=== PATIENT | female | born 1960 | race Caucasian/White ===

== ENCOUNTER 2017-01-22 03:45 | Emergency (ER) ==
[2017-01-22 04:09] VITALS: BP 156/83
[2017-01-22] MEDS ORDERED: TORADOL IM ONE (04:16)
--- NOTE | 2017-01-22 04:20 | PROVIDER DOCUMENTATION ---
HPI-Musculoskeletal Pain/Inj - GENERAL Chief Complaint: Extremity Pain Stated Complaint: RT ARM PAIN Time Seen by Provider: 01/22/17 03:56 Source: patient, old records - HX OF PRESENT ILLNESS-MUSKULOSKELTAL Nature of Presenting Problem: c/o rt forearm and rt wrisst pain not relieved by Tylenol. Pt has been in ER 26 times the past two years with ssimilar complaints involving all extremeties. No serious problems have been idenified and she will not follow up with any physicians. Quality of Pain: reports: burning Severity in ED: mild Onset/Duration: 1 hour ago Timing: still present Modifying Factors: improves with: nothing Any recent injury?: No Similar Symptoms Previously?: Yes Recently seen or treated by another doctor?: Yes (multiple ER visits this year) - UPPER EXTREMITY PAIN/INJURY Extremities Pain Location: forearm: right, wrist: right Context / Method of Injury: reports: unknown Associated Symptoms: reports: other (Pt has good circulation in involved extremity, no paresthesia) Review of Systems - Adult - REVIEW OF SYSTEMS - ADULT Constitutional: reports: no symptoms reported Eyes: reports: no symptoms reported Ears, Nose, Mouth & Throat: reports: no symptoms reported Cardiovascular: reports: no symptoms reported Respiratory: reports: no symptoms reported Gastrointestinal: reports: no symptoms reported Genitourinary: reports: no symptoms reported Musculoskeletal: reports: no symptoms reported Integumentary: reports: no symptoms reported Neurological: reports: no symptoms reported Psychiatric: reports: no symptoms reported Endocrine: reports: no symptoms reported Hematologic/Lymphatic: reports: no symptoms reported Allergic/Immunologic: reports: no symptoms reported All Other Systems: Reviewed and Negative Past History - Adult - PAST MEDICAL HISTORY-ADULT Review of Records: reports: Old Records Reviewed, Nursing Assessment Review Major Childhood Illnesses: reports: denies history Cardiovascular: reports: HTN Respiratory: reports: asthma Gastrointestinal: reports: cancer Obstetrical/Gynecological: reports: denies history Genitourinary: reports: denies history Musculoskeletal: reports: arthritis, chronic pain (back), intervertebral disc disease, orthopedic injury Neurological: reports: denies history Psychiatric: reports: anxiety Endocrine/Immune: reports: denies history Other Conditions: reports: denies history - PRIOR SURGERIES/PROCEDURES Surgical/Procedure History: reports: hysterectomy, hernia repair, joint replacement - IMMUNIZATION STATUS Childhood Immunizations: See Nurse Assessment Flu Vaccine: See Nurse Assessment - FAMILY HISTORY Family History: reviewed, not pertinent Physical Exam-Injury Related - Physical Exam-Injury Related Initial Vital Signs Reviewed: Yes General Appearance: appears well, alert, no apparent distress Eyes: PERRL/EOMI Head, Ears, Nose, Mouth & Throat: dental decay Neck: non-tender, full range of motion Respiratory: chest non-tender Cardiovascular: normal peripheral pulses Peripheral Pulses: radial (R): 3+, radial (L): 3+ Abdominal Exam: normal bowel sounds Male Genitalia: deferred Rectal Exam: deferred Back Exam: normal inspection, no CVA tenderness Extremity: normal range of motion Integumentary: normal color, warm/dry Psych/Mental Status: oriented x 3, disheveled - Gl[place]ow Coma Score [place] Total: 15 Progress - PLAN OF CARE/RESULTS Progress/Plan/Lab Results: Orders Category Date Time Status Ketorolac [Toradol] Med 01/22/17 04:16 Discontinued 30 mg IM NOW ONE Vital Signs Temp Pulse Resp BP Pulse Ox 01/22/17 04:08 82 14 156/83 99 01/22/17 04:03 97.5 F L 86 18 184/89 99 Sulfa (Sulfonamide Antibiotics) Allergy (Intermediate, Verified 01/22/17 04:21) SWELLING levofloxacin [From Levaquin] Allergy (Unknown, Verified 01/22/17 04:21) Unknown Penicillins Adverse Reaction (Severe, Verified 01/22/17 04:21) SYNCOPE ferrous sulfate Adverse Reaction (Intermediate, Verified 01/22/17 04:21) DIARRHEA ketorolac tromethamine * [From Toradol] Adverse Reaction (Mild, Verified 04:21) Unknown PT UNSURE WHAT IT DOES. prochlorperazine edisylate * [From Compazine] Adverse Reaction (Mild, Verified 01/22/17 04:21) "IT MAKES ME NERVOUS" prochlorperazine maleate * [From Compazine] Adverse Reaction (Mild, Verified 03/07 04:21) " IT MAKES ME NERVOUS" promethazine HCl * [From Phenergan] Adverse Reaction (Mild, Verified 01/22/17 04 :21) "IT MAKES ME NERVOUS" Estradiol 2 mg PO QAM 03/30/14 Pantoprazole [Protonix] 40 mg PO DAILY 09/01/15 Dicyclomine HCl 10 mg PO Q6H PRN 09/10/15 Diphenoxylate/Atropine [Lomotil] 1 each PO TID PRN 09/10/15 Cephalexin [Keflex] 500 mg PO Q6HR #28 capsule 01/08/17 Cyclobenzaprine [Flexeril] 10 mg PO BID PRN 01/08/17 Fluticasone/Salmet 100/50 INH [Advair 100/50 Diskus] 1 puff INH RTBID 01/08/17 Hyoscyamine Sulfate [Symax Duotab] 0.375 mg PO BID PRN 01/08/17 Lisinopril 20 mg PO DAILY 01/08/17 Lorazepam [Ativan] 0.5 mg PO QHS 01/08/17 Nystatin Cream [Mycostatin Cream] 15 gm .SEE ORDER TID #1 tube 01/08/17 Ondansetron [Zofran] 4 mg PO TID PRN 01/08/17 Pregabalin [Lyrica] 50 mg PO TID 01/08/17 Cyclobenzaprine [Flexeril] 10 mg PO TID #20 tablet 01/09/17 Methylprednisolone [Medrol Dosepak] 4 mg PO DIRECTED #1 package 01/09/17 Departure - Departure Time of Disposition Order: 04:32 DIAGNOSIS: Arm pain, right Disposition: HOME 01 Certified Medical Emergency: Emergent Condition: Good
--- NOTE | 2017-01-24 10:32 | EKG Report ---
Test Performed on : 01/22/2017 03:50:04 AM Test Reason : ED> not ordered in [place] Blood Pressure : / mmHG Vent. Rate : 082 BPM Atrial Rate : 082 BPM P-R Int : 174 ms QRS Dur : 078 ms QT Int : 390 ms P-R-T Axes : 034 028 023 degrees QTc Int : 455 ms Normal sinus rhythm. Nonspecific ST abnormality Abnormal ECG When compared with ECG of 01-SEP-2015 11:26, No significant change was found Unconfirmed Result
== END 2017-01-22 04:42 | disposition home or self-care (01) ==
LOC: ED 03:45
DX: M79.631 Pain in right forearm (principal); M25.531 Pain in right wrist; K02.9 Dental caries, unspecified; I10 Essential (primary) hypertension; M19.90 Unspecified osteoarthritis, unspecified site; G89.29 Other chronic pain; M54.9 Dorsalgia, unspecified; Z85.9 Personal history of malignant neoplasm, unspecified; Z96.60 Presence of unspecified orthopedic joint implant
CPT/HCPCS: 93005; J1885

== ENCOUNTER 2017-01-27 09:23 | Emergency (ER) ==
[2017-01-27 09:31] VITALS: BP 160/79
--- NOTE | 2017-01-27 09:34 | PROVIDER DOCUMENTATION ---
HPI-Rash/Wound/ReCheck - General Chief Complaint: Rash Stated Complaint: RASH Time Seen by Provider: 01/27/17 09:34 Allergies/Adverse Reactions: Allergies Allergy/AdvReac Type Severity Reaction Status Date / Time Sulfa (Sulfonamide Allergy Intermediate SWELLING Verified 01/27/17 09:36 Antibiotics) levofloxacin [From Levaquin] Allergy Unknown Unknown Verified 01/27/17 09:36 Penicillins AdvReac Severe SYNCOPE Verified 01/27/17 09:36 ferrous sulfate AdvReac Intermediate DIARRHEA Verified 01/27/17 09:36 ketorolac tromethamine * AdvReac Mild Unknown Verified 01/27/17 09:36 [From Toradol] prochlorperazine edisylate * AdvReac Mild "IT MAKES Verified 01/27/17 09:36 [From Compazine] ME NERVOUS" prochlorperazine maleate * AdvReac Mild " IT MAKES Verified 01/27/17 09:36 [From Compazine] ME NERVOUS" promethazine HCl * AdvReac Mild "IT MAKES Verified 01/27/17 09:36 [From Phenergan] ME NERVOUS" Home Medications: Home Medication List Medication Instructions Recorded Confirmed Last Taken Type Estradiol 2 mg PO QAM 03/30/14 01/08/17 01/08/17 History Pantoprazole [Protonix] 40 mg PO DAILY 09/01/15 01/08/17 01/08/17 History Dicyclomine HCl 10 mg PO Q6H PRN 09/10/15 01/08/17 01/08/17 History Diphenoxylate/Atropine [Lomotil] 1 each PO TID PRN 09/10/15 01/08/17 01/08/17 History Cephalexin [Keflex] 500 mg PO Q6HR #28 capsule 01/08/17 Unknown Rx Cyclobenzaprine [Flexeril] 10 mg PO BID PRN 01/08/17 01/08/17 01/08/17 History Fluticasone/Salmet 100/50 INH 1 puff INH RTBID 01/08/17 01/08/17 01/08/17 History [Advair 100/50 Diskus] Hyoscyamine Sulfate [Symax Duotab] 0.375 mg PO BID PRN 01/08/17 01/08/17 History Lisinopril 20 mg PO DAILY 01/08/17 01/08/17 01/08/17 History Lorazepam [Ativan] 0.5 mg PO QHS 01/08/17 01/08/17 01/08/17 History Nystatin Cream [Mycostatin Cream] 15 gm .SEE ORDER TID #1 tube 01/08/17 Unknown Rx Ondansetron [Zofran] 4 mg PO TID PRN 01/08/17 01/08/17 01/08/17 History Pregabalin [Lyrica] 50 mg PO TID 01/08/17 01/08/17 01/08/17 History Cyclobenzaprine [Flexeril] 10 mg PO TID #20 tablet 01/09/17 Unknown Rx Methylprednisolone [Medrol Dosepak] 4 mg PO DIRECTED #1 package 01/09/17 Unknown Rx Triamcinolone 0.1% Cr [Kenalog 1 applicatn TOP TID #1 tube 01/27/17 Unknown Rx 0.1% Cream] - History of Present Illness-Dermatology Nature of Presenting Problem: Pt reports she has rash that developed after taking bentyl but she continues to take bentyl. There are a few areas of redness on right anterior thigh but main complaint is "body stinging." Pt then states she developed rash because her pain doctor stopped giving her pain meds when he went out of business and if she could have pain meds her rash would resolve. Pt also c/o body "stinging" that would resolve if her pain meds could be refilled. States she is on a wait list for pain clinic in [place]. Pt is in no distress and is a very poor historian. Location: reports: generalized Body-Front/Back: 1 - rash 2 - feelings of stinging 3 - feelings of stinging Quality: reports: stinging Severity: reports: moderate Onset/Duration: reports: other (3 months) Timing: reports: constant Context/Associated Symptoms: reports: rash Similar Symptoms Previously?: Yes Recently seen or treated by another doctor?: Yes (frequently seen in ER for chronic/vague pain complaints) Review of Systems - Adult - REVIEW OF SYSTEMS - ADULT Constitutional: denies: chills, fever Eyes: denies: blurred vision, double vision Cardiovascular: reports: no symptoms reported Respiratory: reports: no symptoms reported Gastrointestinal: reports: no symptoms reported Musculoskeletal: reports: muscle aches Integumentary: reports: see HPI All Other Systems: Reviewed and Negative Past History - Adult - PAST MEDICAL HISTORY-ADULT Review of Records: reports: Old Records Reviewed, Nursing Assessment Review, Medications Reviewed Major Childhood Illnesses: reports: denies history Cardiovascular: reports: HTN Respiratory: reports: asthma Gastrointestinal: reports: cancer Obstetrical/Gynecological: reports: denies history Genitourinary: reports: denies history Musculoskeletal: reports: arthritis, chronic pain (back), intervertebral disc disease, orthopedic injury Neurological: reports: denies history Psychiatric: reports: anxiety Endocrine/Immune: reports: denies history Other Conditions: reports: denies history - PRIOR SURGERIES/PROCEDURES Surgical/Procedure History: reports: hysterectomy, hernia repair, joint replacement - IMMUNIZATION STATUS Childhood Immunizations: See Nurse Assessment Flu Vaccine: See Nurse Assessment - FAMILY HISTORY Family History: reviewed, not pertinent Physical Exam-General - PHYSICAL EXAM-ADULT Initial Vital Signs Reviewed: Yes - CONSTITUTIONAL General Appearance: appears well, alert, no apparent distress - EYES Eyes: PERRL/EOMI, pink conjunctivae - HEAD, EARS, NOSE, MOUTH & THROAT HENMT: normocephalic/atraumatic, moist mucous membranes - NECK Neck: non-tender, full range of motion, supple - RESPIRATORY Respiratory: lungs clear, normal breath sounds - CARDIOVASCULAR Cardiovascular: regular rate, rhythm, no edema - GASTROINTESTINAL (ABDOMEN) Abdominal Exam: normal bowel sounds, non tender, soft - MUSCULOSKELETAL Back Exam: normal inspection, no CVA tenderness, no vertebral tenderness Extremity: normal gait, normal inspection - SKIN Integumentary: normal color, normal turgor, warm/dry. negative: rash (no rash appreciated, area of redness to right anterior thigh that does not resemble hives or urticaria) - NEUROLOGIC Neurologic: grossly normal, other (reports "body stinging" but has normal motor function) - PSYCHIATRIC Psych/Mental Status: normal thought content, normal thought process Progress - PLAN OF CARE/RESULTS Progress/Plan/Lab Results: Vital Signs Temp Pulse Resp BP Pulse Ox 01/27/17 09:29 97.7 F 83 18 160/79 100 Sulfa (Sulfonamide Antibiotics) Allergy (Intermediate, Verified 01/27/17 09:36) SWELLING levofloxacin [From Levaquin] Allergy (Unknown, Verified 01/27/17 09:36) Unknown Penicillins Adverse Reaction (Severe, Verified 01/27/17 09:36) SYNCOPE ferrous sulfate Adverse Reaction (Intermediate, Verified 01/27/17 09:36) DIARRHEA ketorolac tromethamine * [From Toradol] Adverse Reaction (Mild, Verified 09:36) Unknown PT UNSURE WHAT IT DOES. prochlorperazine edisylate * [From Compazine] Adverse Reaction (Mild, Verified 01/27/17 09:36) "IT MAKES ME NERVOUS" prochlorperazine maleate * [From Compazine] Adverse Reaction (Mild, Verified 08/07 09:36) " IT MAKES ME NERVOUS" promethazine HCl * [From Phenergan] Adverse Reaction (Mild, Verified 01/27/17 09 :36) "IT MAKES ME NERVOUS" Estradiol 2 mg PO QAM 03/30/14 Pantoprazole [Protonix] 40 mg PO DAILY 09/01/15 Dicyclomine HCl 10 mg PO Q6H PRN 09/10/15 Diphenoxylate/Atropine [Lomotil] 1 each PO TID PRN 09/10/15 Cephalexin [Keflex] 500 mg PO Q6HR #28 capsule 01/08/17 Cyclobenzaprine [Flexeril] 10 mg PO BID PRN 01/08/17 Fluticasone/Salmet 100/50 INH [Advair 100/50 Diskus] 1 puff INH RTBID 01/08/17 Hyoscyamine Sulfate [Symax Duotab] 0.375 mg PO BID PRN 01/08/17 Lisinopril 20 mg PO DAILY 01/08/17 Lorazepam [Ativan] 0.5 mg PO QHS 01/08/17 Nystatin Cream [Mycostatin Cream] 15 gm .SEE ORDER TID #1 tube 01/08/17 Ondansetron [Zofran] 4 mg PO TID PRN 01/08/17 Pregabalin [Lyrica] 50 mg PO TID 01/08/17 Cyclobenzaprine [Flexeril] 10 mg PO TID #20 tablet 01/09/17 Methylprednisolone [Medrol Dosepak] 4 mg PO DIRECTED #1 package 01/09/17 Orders Category Date Time Status Dexamethasone [Decadron] Med 01/27/17 10:06 Discontinued 4 mg IM NOW ONE Departure - Departure Time of Disposition Order: 10:16 DIAGNOSIS: Rash and nonspecific skin eruption Disposition: HOME 01 Certified Medical Emergency: Emergent Condition: Good Additional Instructions: avoid taking bentyl if this medication causes the rash to occur. ED Follow Up Instructions: You have been treated by a care provider in the Emergency Department. These instructions are being provided to you so you can have an understanding of how to care for yourself upon discharge. Upon discharge from the Emergency Department, you are responsible for making arrangements for follow-up care by a physician of your choice. Take all prescribed medications as directed. Return to the Emergency Department immediately for any new or worsening symptoms. You may call the Physician Referral phone number at [phone] to obtain a list of Physicians who are taking new patients. Prescriptions: Triamcinolone 0.1% Cr [Kenalog 0.1% Cream] 1 applicatn TOP TID #1 tube Referrals: None,PCP [Primary Care Provider] - David Keller MD [STAFF PHYSICIAN] - Attestation - Physician/ LASHAE Attestation Patient care was provided by Advanced Practice Provider:: Yes Advanced Practice Provider:: Arabella Khan Advanced Practice Provider documentation review:: The Mid-level provider documentation, treatment plan and medical decision making was reviewed by the physician who agrees with all treatment and medical decision making by the P.
[2017-01-27] MEDS ORDERED: DECADRON IM ONE (10:06)
== END 2017-01-27 10:26 | disposition home or self-care (01) ==
LOC: ED 09:23
DX: R21 Rash and other nonspecific skin eruption (principal); L53.9 Erythematous condition, unspecified; I10 Essential (primary) hypertension; J45.909 Unspecified asthma, uncomplicated; M19.90 Unspecified osteoarthritis, unspecified site; G89.29 Other chronic pain; M54.9 Dorsalgia, unspecified; F41.9 Anxiety disorder, unspecified; Z79.51 Long term (current) use of inhaled steroids; Z79.899 Other long term (current) drug therapy
CPT/HCPCS: 96372; J1100

== ENCOUNTER 2017-01-28 05:50 | Emergency (ER) ==
[2017-01-28 06:21] LABS: URINE CULTURE NEEDED? NO; URINE MICRO REVIEW NEEDED? NO; URINE SOURCE CLEAN CATCH
[2017-01-28 06:24] LABS: BILIRUBIN URINE NEGATIVE (NEGATIVE); BLOOD URINE NEGATIVE (NEGATIVE); COLOR YELLOW; GLUCOSE URINE NEGATIVE (NEGATIVE); LEUKOCYTES URINE NEGATIVE (NEGATIVE); NITRITE URINE NEGATIVE (NEGATIVE); PH URINE 5.5; PROTEIN URINE 30 mg/dL (NEGATIVE); SP GRAVITY URINE 1.036; TURBIDITY URINE CLEAR (CLEAR); UROBILINOGEN URINE NORMAL (NORMAL)
[2017-01-28 06:25] LABS: UR EPITHELIAL CELLS <10 /HPF (<10); URINE BACTERIA 1+ /HPF; URINE RBC <10 /HPF (<10); URINE WBC <10 /HPF (<10)
--- NOTE | 2017-01-28 06:32 | PROVIDER DOCUMENTATION ---
HPI-Abdominal Pain/GI Problem - General Chief Complaint: Abdominal Pain Stated Complaint: ABD PAIN, BLADDER PAIN Time Seen by Provider: 01/28/17 06:24 Source: patient, family Allergies/Adverse Reactions: Patient Allergies Allergy/AdvReac Type Severity Reaction Status Date / Time Sulfa (Sulfonamide Allergy Intermediate SWELLING Verified 01/28/17 06:02 Antibiotics) levofloxacin [From Levaquin] Allergy Unknown Unknown Verified 01/28/17 06:02 Penicillins AdvReac Severe SYNCOPE Verified 01/28/17 06:02 ferrous sulfate AdvReac Intermediate DIARRHEA Verified 01/28/17 06:02 ketorolac tromethamine * AdvReac Mild Unknown Verified 01/28/17 06:02 [From Toradol] prochlorperazine edisylate * AdvReac Mild "IT MAKES Verified 01/28/17 06:02 [From Compazine] ME NERVOUS" prochlorperazine maleate * AdvReac Mild " IT MAKES Verified 01/28/17 06:02 [From Compazine] ME NERVOUS" promethazine HCl * AdvReac Mild "IT MAKES Verified 01/28/17 06:02 [From Phenergan] ME NERVOUS" Home Medications: Home Medication List Medication Instructions Recorded Confirmed Last Taken Type Estradiol 2 mg PO QAM 03/30/14 01/28/17 01/27/17 08:00 History Pantoprazole [Protonix] 40 mg PO DAILY 09/01/15 01/28/17 01/27/17 08:00 History Dicyclomine HCl 10 mg PO Q6H PRN 09/10/15 01/28/17 01/08/17 History Diphenoxylate/Atropine [Lomotil] 1 each PO TID PRN 09/10/15 01/28/17 01/08/17 History Fluticasone/Salmet 100/50 INH 1 puff INH RTBID 01/08/17 01/28/17 01/27/17 08:00 History [Advair 100/50 Diskus] Hyoscyamine Sulfate [Symax Duotab] 0.375 mg PO BID PRN 01/08/17 01/28/17 08:00 History Lisinopril 20 mg PO DAILY 01/08/17 01/28/17 01/27/17 08:00 History Lorazepam [Ativan] 0.5 mg PO QHS 01/08/17 01/28/17 01/27/17 20:00 History Nystatin Cream [Mycostatin Cream] 15 gm .SEE ORDER TID #1 tube 01/08/1701/27/17 08:00 Rx Ondansetron [Zofran] 4 mg PO TID PRN 01/08/17 01/28/17 01/08/17 History Pregabalin [Lyrica] 50 mg PO TID 01/08/17 01/28/17 01/27/17 20:00 History Cyclobenzaprine [Flexeril] 10 mg PO TID #20 tablet 01/09/17 01/28/17 01/27/17 12 :00 Rx Triamcinolone 0.1% Cr [Kenalog 1 applicatn TOP TID #1 tube 01/27/17 01/28/1708/07 20:00 Rx 0.1% Cream] Tramadol [Ultram] 50 mg PO Q6H PRN PRN #12 tablet 01/28/17 Unknown Rx - History of Present Illness-ABD Nature of Presenting Problems: crampy lower aBD pain since this am, constant. Worse with move, palpation. No fever, sl nausea, no vomiting. No change in BM. Abdominal Pain Onset Location: reports: suprapubic Pain Radiation: reports: no radiation Quality of Pain: reports: cramping Severity in ED: reports: moderate Onset/Duration: reports: 1-3 hours ago Timing: reports: still present Activities at Onset: reports: none Exposure to sick contacts?: No Modifying Factors: worse with: movement, palpation Associated Symptoms: reports: nausea. denies: constipation, diarrhea, fever/ chills, vomiting Similar Symptoms Previously?: No Recently seen or treated by another doctor?: No Review of Systems - Adult - REVIEW OF SYSTEMS - ADULT Constitutional: reports: no symptoms reported Eyes: reports: no symptoms reported Ears, Nose, Mouth & Throat: reports: no symptoms reported Cardiovascular: reports: no symptoms reported Respiratory: reports: no symptoms reported Gastrointestinal: reports: see HPI Genitourinary: reports: no symptoms reported Musculoskeletal: reports: other (R knee pain) Integumentary: reports: no symptoms reported Neurological: reports: no symptoms reported Psychiatric: reports: no symptoms reported Endocrine: reports: no symptoms reported Hematologic/Lymphatic: reports: no symptoms reported Allergic/Immunologic: reports: no symptoms reported Past History - Adult - PAST MEDICAL HISTORY-ADULT Review of Records: reports: Medications Reviewed Major Childhood Illnesses: reports: denies history Cardiovascular: reports: HTN Respiratory: reports: asthma Gastrointestinal: reports: cancer Obstetrical/Gynecological: reports: denies history Genitourinary: reports: denies history Musculoskeletal: reports: arthritis, chronic pain (back), intervertebral disc disease, orthopedic injury Neurological: reports: denies history Psychiatric: reports: anxiety Endocrine/Immune: reports: denies history Other Conditions: reports: denies history - PRIOR SURGERIES/PROCEDURES Surgical/Procedure History: reports: hysterectomy, hernia repair, joint replacement, other (colon resection) - IMMUNIZATION STATUS Childhood Immunizations: See Nurse Assessment Flu Vaccine: See Nurse Assessment - FAMILY HISTORY Family History: reviewed, not pertinent - SOCIAL HISTORY Smoking: denies Physical Exam-General - PHYSICAL EXAM-ADULT Initial Vital Signs Reviewed: Yes - CONSTITUTIONAL General Appearance: appears well, alert, mild distress - EYES Eyes: PERRL/EOMI, pink conjunctivae - HEAD, EARS, NOSE, MOUTH & THROAT HENMT: normocephalic/atraumatic, moist mucous membranes, normal ENT inspection, pharynx normal - NECK Neck: full range of motion, supple - RESPIRATORY Respiratory: lungs clear, normal breath sounds, no respiratory distress - CARDIOVASCULAR Cardiovascular: regular rate, rhythm, no gallop, no JVD, no murmur - GASTROINTESTINAL (ABDOMEN) Abdominal Exam: soft, other (BS sl high pitched. Tenderness across lower abd, worse suprapubic, RLQ) - MUSCULOSKELETAL Back Exam: normal inspection, no CVA tenderness, no vertebral tenderness Extremity: normal range of motion - SKIN Integumentary: normal color, normal turgor, warm/dry - NEUROLOGIC Neurologic: oxygen equipment preparer II-XII nml as tested, grossly normal, no motor/sensory deficits - PSYCHIATRIC Psych/Mental Status: normal mood/affect, normal thought content, normal thought process, oriented x 3 Progress - PLAN OF CARE/RESULTS Progress/Plan/Lab Results: Vital Signs Temp Pulse Resp BP Pulse Ox 01/28/17 10:18 81 18 148/78 98 01/28/17 05:53 97.5 F L 91 H 18 150/80 98 Sulfa (Sulfonamide Antibiotics) Allergy (Intermediate, Verified 01/28/17 06:02) SWELLING levofloxacin [From Levaquin] Allergy (Unknown, Verified 01/28/17 06:02) Unknown Penicillins Adverse Reaction (Severe, Verified 01/28/17 06:02) SYNCOPE ferrous sulfate Adverse Reaction (Intermediate, Verified 01/28/17 06:02) DIARRHEA ketorolac tromethamine * [From Toradol] Adverse Reaction (Mild, Verified 06:02) Unknown PT UNSURE WHAT IT DOES. prochlorperazine edisylate * [From Compazine] Adverse Reaction (Mild, Verified 01/28/17 06:02) "IT MAKES ME NERVOUS" prochlorperazine maleate * [From Compazine] Adverse Reaction (Mild, Verified 09/06 06:02) " IT MAKES ME NERVOUS" promethazine HCl * [From Phenergan] Adverse Reaction (Mild, Verified 01/28/17 06 :02) "IT MAKES ME NERVOUS" Estradiol 2 mg PO QAM 03/30/14 Pantoprazole [Protonix] 40 mg PO DAILY 09/01/15 Dicyclomine HCl 10 mg PO Q6H PRN 09/10/15 Diphenoxylate/Atropine [Lomotil] 1 each PO TID PRN 09/10/15 Fluticasone/Salmet 100/50 INH [Advair 100/50 Diskus] 1 puff INH RTBID 01/08/17 Hyoscyamine Sulfate [Symax Duotab] 0.375 mg PO BID PRN 01/08/17 Lisinopril 20 mg PO DAILY 01/08/17 Lorazepam [Ativan] 0.5 mg PO QHS 01/08/17 Nystatin Cream [Mycostatin Cream] 15 gm .SEE ORDER TID #1 tube 01/08/17 Ondansetron [Zofran] 4 mg PO TID PRN 01/08/17 Pregabalin [Lyrica] 50 mg PO TID 01/08/17 Cyclobenzaprine [Flexeril] 10 mg PO TID #20 tablet 01/09/17 Triamcinolone 0.1% Cr [Kenalog 0.1% Cream] 1 applicatn TOP TID #1 tube 01/27/17 I&O 01/27/17 01/28/17 01/29/17 06:59 06:59 06:59 Output Total 30 Balance -30 Laboratory 01/28/17 01/28/17 01/28/17 07:23 07:23 06:00 WBC 13.04 H RBC 3.53 L Hgb 10.7 L Hct 33.2 L MCV 94.1 MCH 30.3 MCHC 32.2 L RDW Std Deviation 14.4 Plt Count 450 H MPV 9.7 Immature Gran % (Auto) 0.3 Neut % (Auto) 68.7 Lymph % (Auto) 24.9 [place] % (Auto) 5.7 Eos % (Auto) 0.2 Baso % (Auto) 0.2 Immature Gran # (Auto) 0.04 Neut # (Auto) 8.97 H Lymph # (Auto) 3.25 [place] # (Auto) 0.74 H Eos # (Auto) 0.02 Baso # (Auto) 0.02 Sodium 137 Potassium 4.4 Chloride 98 Carbon Dioxide 24 L Anion Gap 15 BUN 24 H Creatinine 1.0 H Estimated GFR/1.73 m2 57 BUN/Creatinine Ratio 24 Glucose 100 Calculated Osmolality 278 Calcium 8.9 Total Bilirubin 0.15 L AST 16 ALT 13 Alkaline Phosphatase 76 Total Protein 6.9 Albumin 4.0 Globulin 2.9 Albumin/Globulin Ratio 1.4 Urine Source CLEAN CATCH Urine Color YELLOW Urine Turbidity CLEAR Urine pH 5.5 Ur Specific [place] 1.036 Urine Protein 30 A Ur Glucose (Stick) NEGATIVE Ur Ketones (Stick) TRACE A Urine Blood NEGATIVE Urine Nitrite NEGATIVE Urine Bilirubin NEGATIVE Urobilinogen Dipstick NORMAL Urine Leukocytes NEGATIVE Urine WBC (Auto) <10 Urine RBC (Auto) <10 U Epithel Cells (Auto) <10 Urine Bacteria (Auto) 1+ Orders Category Date Time Status Bladder Scan and Record Result ORDERED Care 01/28/17 06:[address] ABD/PELVIS W/ IV CONT ONLY [CT] Stat Exams 01/28/17 06:25 Completed CBC WITH DIFF [HEME] Stat Lab 01/28/17 07:23 Completed COMPREHENSIVE METABOLIC PANEL [CHEM] Stat Lab 01/28/17 07:23 Completed URINALYSIS W/POSS RFLX CULT [URINALYSIS] Stat Lab 01/28/17 06:00 Completed Morphine Med 01/28/17 09:02 Discontinued 4 mg IV NOW ONE Ondansetron [Zofran] Med 01/28/17 09:02 Discontinued 8 mg IV NOW ONE Vital Signs Temp Pulse Resp BP Pulse Ox 01/28/17 10:18 81 18 148/78 98 01/28/17 05:53 97.5 F L 91 H 18 150/80 98 Sulfa (Sulfonamide Antibiotics) Allergy (Intermediate, Verified 01/28/17 06:02) SWELLING levofloxacin [From Levaquin] Allergy (Unknown, Verified 01/28/17 06:02) Unknown Penicillins Adverse Reaction (Severe, Verified 01/28/17 06:02) SYNCOPE ferrous sulfate Adverse Reaction (Intermediate, Verified 01/28/17 06:02) DIARRHEA ketorolac tromethamine * [From Toradol] Adverse Reaction (Mild, Verified 06:02) Unknown PT UNSURE WHAT IT DOES. prochlorperazine edisylate * [From Compazine] Adverse Reaction (Mild, Verified 01/28/17 06:02) "IT MAKES ME NERVOUS" prochlorperazine maleate * [From Compazine] Adverse Reaction (Mild, Verified 09/06 06:02) " IT MAKES ME NERVOUS" promethazine HCl * [From Phenergan] Adverse Reaction (Mild, Verified 01/28/17 06 :02) "IT MAKES ME NERVOUS" Estradiol 2 mg PO QAM 03/30/14 Pantoprazole [Protonix] 40 mg PO DAILY 09/01/15 Dicyclomine HCl 10 mg PO Q6H PRN 09/10/15 Diphenoxylate/Atropine [Lomotil] 1 each PO TID PRN 09/10/15 Fluticasone/Salmet 100/50 INH [Advair 100/50 Diskus] 1 puff INH RTBID 01/08/17 Hyoscyamine Sulfate [Symax Duotab] 0.375 mg PO BID PRN 01/08/17 Lisinopril 20 mg PO DAILY 01/08/17 Lorazepam [Ativan] 0.5 mg PO QHS 01/08/17 Nystatin Cream [Mycostatin Cream] 15 gm .SEE ORDER TID #1 tube 01/08/17 Ondansetron [Zofran] 4 mg PO TID PRN 01/08/17 Pregabalin [Lyrica] 50 mg PO TID 01/08/17 Cyclobenzaprine [Flexeril] 10 mg PO TID #20 tablet 01/09/17 Triamcinolone 0.1% Cr [Kenalog 0.1% Cream] 1 applicatn TOP TID #1 tube 01/27/17 I&O 01/27/17 01/28/17 01/29/17 06:59 06:59 06:59 Output Total 30 Balance -30 Laboratory 01/28/17 01/28/17 01/28/17 07:23 07:23 06:00 WBC 13.04 H RBC 3.53 L Hgb 10.7 L Hct 33.2 L MCV 94.1 MCH 30.3 MCHC 32.2 L RDW Std Deviation 14.4 Plt Count 450 H MPV 9.7 Immature Gran % (Auto) 0.3 Neut % (Auto) 68.7 Lymph % (Auto) 24.9 [place] % (Auto) 5.7 Eos % (Auto) 0.2 Baso % (Auto) 0.2 Immature Gran # (Auto) 0.04 Neut # (Auto) 8.97 H Lymph # (Auto) 3.25 [place] # (Auto) 0.74 H Eos # (Auto) 0.02 Baso # (Auto) 0.02 Sodium 137 Potassium 4.4 Chloride 98 Carbon Dioxide 24 L Anion Gap 15 BUN 24 H Creatinine 1.0 H Estimated GFR/1.73 m2 57 BUN/Creatinine Ratio 24 Glucose 100 Calculated Osmolality 278 Calcium 8.9 Total Bilirubin 0.15 L AST 16 ALT 13 Alkaline Phosphatase 76 Total Protein 6.9 Albumin 4.0 Globulin 2.9 Albumin/Globulin Ratio 1.4 Urine Source CLEAN CATCH Urine Color YELLOW Urine Turbidity CLEAR Urine pH 5.5 Ur Specific [place] 1.036 Urine Protein 30 A Ur Glucose (Stick) NEGATIVE Ur Ketones (Stick) TRACE A Urine Blood NEGATIVE Urine Nitrite NEGATIVE Urine Bilirubin NEGATIVE Urobilinogen Dipstick NORMAL Urine Leukocytes NEGATIVE Urine WBC (Auto) <10 Urine RBC (Auto) <10 U Epithel Cells (Auto) <10 Urine Bacteria (Auto) 1+ - CT/MRI 1 CT Study: Abdomen, Pelvis Impression: Normal CT Results: chronic changes, nothing acute Departure - Departure Time of Disposition Order: 10:30 DIAGNOSIS: Abdominal pain of unknown etiology Disposition: HOME 01 Certified Medical Emergency: Emergent Condition: Good Additional Instructions: ED Follow Up Instructions: You have been treated by a care provider in the Emergency Department. These instructions are being provided to you so you can have an understanding of how to care for yourself upon discharge. Upon discharge from the Emergency Department, you are responsible for making arrangements for follow-up care by a physician of your choice. Take all prescribed medications as directed. Return to the Emergency Department immediately for any new or worsening symptoms. You may call the Physician Referral phone number at [phone] to obtain a list of Physicians who are taking new patients. Prescriptions: Tramadol [Ultram] 50 mg PO Q6H PRN PRN #12 tablet PRN Reason: Pain Referrals: Ceferino Barrientos [Primary Care Provider] - Instructions: Abdominal Pain, Women
[2017-01-28 07:30] LABS: MANUAL DIFF NEEDED? NO
[2017-01-28 07:37] LABS: BASO% 0.2 % (0.0-0.8); EOS# 0.02 X1000 (0.0-0.7); EOS% 0.2 % (0.0-10.0); HEMATOCRIT 33.2 % (37.0-47.0); HEMOGLOBIN 10.7 g/dL (12.0-16.0); IMM GRAN# 0.04 X1000 (0.0-0.04); IMM GRAN% 0.3 % (0.0-0.5); LYMPH# 3.25 X1000 (1.2-3.4); LYMPH% 24.9 % (20.5-51.1); MCH 30.3 PG (27-31); MCHC 32.2 g/dL (33-37); MCV 94.1 FL (81-99); MONO# 0.74 X1000 (0.11-0.59); MONO% 5.7 % (1.7-9.3); MPV 9.7 FL (7.4-10.4); NEUT% 68.7 % (42.2-75.2); PLT 450 X1000 (130-400); RBC 3.53 XMIL (4.2-5.4)
[2017-01-28 08:03] LABS: CALCIUM 8.9 mg/dL (8.8-10.2); POTASSIUM 4.4 mmol/L (3.5-5.1); TOTAL BILIRUBIN 0.15 mg/dL (0.20-1.00); TOTAL PROTEIN 6.9 g/dL (6.3-8.3)
[2017-01-28] MEDS ORDERED: MORPHINE IV ONE (09:02)
[2017-01-28] MEDS ORDERED: ZOFRAN IV ONE (09:02)
--- NOTE | 2017-01-28 09:42 | Diag Imaging Result Document ---
PROCEDURE NAME: CT ABD/PELVIS W/ IV CONT ONLY - 01/28/2017 CT ABDOMEN AND PELVIS WITH INTRAVENOUS CONTRAST: COMPARISON: 08/26/2015. FINDINGS: Dose reduction protocol. There is fatty infiltration of the liver. No focal hepatic abnormality. Normal spleen, pancreas, gallbladder, and adrenal glands. No renal masses. No hydronephrosis. No aortic aneurysm. No enlarged abdominal lymph nodes. No bowel obstruction. The proximal ascending colon has been removed. There is weakening along the anterior low abdominal and pelvic wall. The uterus has been removed. No pelvic mass. The urinary bladder is distended and appears normal. IMPRESSION: 1. Partial ascending colon resection. 2. Fatty infiltration of the liver. 3. Weakening to a large segment of lower abdominal and anterior pelvic wall. 4. Hysterectomy.
[2017-01-28 10:19] VITALS: BP 148/78
== END 2017-01-28 11:02 | disposition home or self-care (01) ==
LOC: ED 05:50
DX: R10.30 Lower abdominal pain, unspecified (principal); K76.0 Fatty (change of) liver, not elsewhere classified; R11.0 Nausea; M25.561 Pain in right knee; R10.813 Right lower quadrant abdominal tenderness; R10.819 Abdominal tenderness, unspecified site; I10 Essential (primary) hypertension; J45.909 Unspecified asthma, uncomplicated; M19.90 Unspecified osteoarthritis, unspecified site; G89.29 Other chronic pain; M54.9 Dorsalgia, unspecified; F41.9 Anxiety disorder, unspecified; Z79.51 Long term (current) use of inhaled steroids; Z79.899 Other long term (current) drug therapy; Z96.60 Presence of unspecified orthopedic joint implant
CPT/HCPCS: 74177; 80053; 81001; 85025; 96374; J2270; J2405; Q9967

== ENCOUNTER 2017-02-06 02:08 | Emergency (ER) ==
[2017-02-06] MEDS ORDERED: TORADOL IM ONE (03:38)
[2017-02-06] MEDS ORDERED: ATIVAN PO ONE (03:38)
--- NOTE | 2017-02-06 03:45 | PROVIDER DOCUMENTATION ---
HPI-Abdominal Pain/GI Problem - General Chief Complaint: Diarrhea Stated Complaint: ABS,BOWEL PAIN Time Seen by Provider: 02/06/17 03:00 Source: patient Allergies/Adverse Reactions: Patient Allergies Allergy/AdvReac Type Severity Reaction Status Date / Time Sulfa (Sulfonamide Allergy Intermediate SWELLING Verified 01/28/17 06:02 Antibiotics) levofloxacin [From Levaquin] Allergy Unknown Unknown Verified 01/28/17 06:02 Penicillins AdvReac Severe SYNCOPE Verified 01/28/17 06:02 ferrous sulfate AdvReac Intermediate DIARRHEA Verified 01/28/17 06:02 ketorolac tromethamine * AdvReac Mild Unknown Verified 01/28/17 06:02 [From Toradol] prochlorperazine edisylate * AdvReac Mild "IT MAKES Verified 01/28/17 06:02 [From Compazine] ME NERVOUS" prochlorperazine maleate * AdvReac Mild " IT MAKES Verified 01/28/17 06:02 [From Compazine] ME NERVOUS" promethazine HCl * AdvReac Mild "IT MAKES Verified 01/28/17 06:02 [From Phenergan] ME NERVOUS" Home Medications: Home Medication List Medication Instructions Recorded Confirmed Last Taken Type Estradiol 2 mg PO QAM 03/30/14 01/28/17 01/27/17 08:00 History Pantoprazole [Protonix] 40 mg PO DAILY 09/01/15 01/28/17 01/27/17 08:00 History Dicyclomine HCl 10 mg PO Q6H PRN 09/10/15 01/28/17 01/08/17 History Diphenoxylate/Atropine [Lomotil] 1 each PO TID PRN 09/10/15 01/28/17 01/08/17 History Fluticasone/Salmet 100/50 INH 1 puff INH RTBID 01/08/17 01/28/17 01/27/17 08:00 History [Advair 100/50 Diskus] Hyoscyamine Sulfate [Symax Duotab] 0.375 mg PO BID PRN 01/08/17 01/28/17 08:00 History Lisinopril 20 mg PO DAILY 01/08/17 01/28/17 01/27/17 08:00 History Lorazepam [Ativan] 0.5 mg PO QHS 01/08/17 01/28/17 01/27/17 20:00 History Nystatin Cream [Mycostatin Cream] 15 gm .SEE ORDER TID #1 tube 01/08/1701/27/17 08:00 Rx Ondansetron [Zofran] 4 mg PO TID PRN 01/08/17 01/28/17 01/08/17 History Pregabalin [Lyrica] 50 mg PO TID 01/08/17 01/28/17 01/27/17 20:00 History Cyclobenzaprine [Flexeril] 10 mg PO TID #20 tablet 01/09/17 01/28/17 01/27/17 12 :00 Rx Triamcinolone 0.1% Cr [Kenalog 1 applicatn TOP TID #1 tube 01/27/17 01/28/1708/07 20:00 Rx 0.1% Cream] [place]/Sod Phos/Meth Blue/Hyos 1 each PO Q6H #12 tablet 01/28/17 Unknown Rx [Urogesic-Blue Tablet] Tramadol [Ultram] 50 mg PO Q6H PRN PRN #12 tablet 01/28/17 Unknown Rx Tramadol [Ultram] 50 mg PO TID #60 tablet 02/06/17 Unknown Rx - History of Present Illness-ABD Nature of Presenting Problems: COLIC ABD PAIN ON/OFF FOR 1 WEEK //PT HAD A BIG BOWL OF CHILI LAST NITGH ..OUT OF HER TRAMADOL AND LORAZEPAN .... Abdominal Pain Onset Location: reports: epigastric, periumbilical Pain Radiation: reports: periumbilical Quality of Pain: reports: aching, cramping Severity in ED: reports: moderate Onset/Duration: reports: 4-6 hours ago Timing: reports: improving, intermittent, changing over time Associated Symptoms: reports: anxiety, diarrhea (ONE EPISODE IN 6 HRS), heartburn, nausea. denies: fever/chills, muscle aches, vomiting Last BM: last night Dark Stools Present?: reports: none noticed Rectal Bleeding: reports: none # of Diarrhea Episodes: 1 Rectal Pain: reports: known hemorrhoids, other (CHRONIC TENESMUS) # of Vomiting Episodes: 0 Emesis Description: reports: none Bruising or Bleeding Gums?: No Similar Symptoms Previously?: Yes Recently seen or treated by another doctor?: Yes (01/28 ER HAD ABDOM PAIN WORK UP) Review of Systems - Adult - REVIEW OF SYSTEMS - ADULT Constitutional: reports: see HPI All Other Systems: Reviewed and Negative Past History - Adult - PAST MEDICAL HISTORY-ADULT Review of Records: reports: Old Records Reviewed, Nursing Assessment Review, Medications Reviewed, Social history reviewed & non-contributory. Major Childhood Illnesses: reports: denies history Cardiovascular: reports: HTN Respiratory: reports: asthma Gastrointestinal: reports: cancer Obstetrical/Gynecological: reports: denies history Genitourinary: reports: denies history Musculoskeletal: reports: arthritis, chronic pain (back), intervertebral disc disease, orthopedic injury Neurological: reports: denies history Psychiatric: reports: anxiety Endocrine/Immune: reports: denies history Other Conditions: reports: denies history - PRIOR SURGERIES/PROCEDURES Surgical/Procedure History: reports: hysterectomy, hernia repair, joint replacement, other (colon resection) - IMMUNIZATION STATUS Childhood Immunizations: See Nurse Assessment Flu Vaccine: See Nurse Assessment - FAMILY HISTORY Family History: reviewed, not pertinent - SOCIAL HISTORY Smoking: denies Provider spent 3-5 mins advising pt. on dangers of tobacco.: Discussed manners to quit use, and f/u contacts for add'l counseling. Substance Use: none/never Alcohol Use Frequency: never Living Situation: family Physical Exam-General - PHYSICAL EXAM-ADULT Initial Vital Signs Reviewed: Yes - CONSTITUTIONAL General Appearance: appears well, alert, no apparent distress - EYES Eyes: PERRL/EOMI - HEAD, EARS, NOSE, MOUTH & THROAT HENMT: normocephalic/atraumatic, moist mucous membranes - NECK Neck: non-tender, full range of motion - RESPIRATORY Respiratory: chest non-tender, lungs clear, normal breath sounds - CARDIOVASCULAR Cardiovascular: normal peripheral pulses, regular rate, rhythm, no edema - GASTROINTESTINAL (ABDOMEN) Abdominal Exam: normal bowel sounds, soft, no organomegaly, tenderness (MILD EPIGASTRIC). negative: distended, guarding, McBurney's point tenderness, Epps 's sign - MUSCULOSKELETAL Back Exam: normal inspection, no CVA tenderness, no vertebral tenderness Extremity: normal range of motion, non-tender, normal gait, normal inspection, no pedal edema, no calf tenderness, normal capillary refill - SKIN Integumentary: normal color, normal turgor - NEUROLOGIC Neurologic: gun synchronizer II-XII nml as tested, grossly normal, no motor/sensory deficits - PSYCHIATRIC Psych/Mental Status: normal mood/affect, oriented x 3 Departure - Departure Time of Disposition Order: 03:40 DIAGNOSIS: Colicky epigastric pain, History of IBS Disposition: HOME 01 Certified Medical Emergency: Emergent Condition: Stable Prescriptions: Tramadol [Ultram] 50 mg PO TID #60 tablet Referrals: Ceferino Barrientos [Primary Care Provider] - Scooby Greco MD [STAFF PHYSICIAN] -
[2017-02-06 04:03] VITALS: BP 165/83
== END 2017-02-06 04:03 | disposition home or self-care (01) ==
LOC: ED 02:08
DX: R10.13 Epigastric pain (principal); K58.9 Irritable bowel syndrome, unspecified; R10.33 Periumbilical pain; R19.7 Diarrhea, unspecified; R12 Heartburn; R11.0 Nausea; R10.816 Epigastric abdominal tenderness; I10 Essential (primary) hypertension; J45.909 Unspecified asthma, uncomplicated; M19.90 Unspecified osteoarthritis, unspecified site; G89.29 Other chronic pain; M54.9 Dorsalgia, unspecified; F41.9 Anxiety disorder, unspecified; Z79.51 Long term (current) use of inhaled steroids; Z79.899 Other long term (current) drug therapy; Z96.60 Presence of unspecified orthopedic joint implant
CPT/HCPCS: 96374; J1885